=== PATIENT | male | born 1990 | race Caucasian/White ===

== ENCOUNTER 2023-12-09 09:28 | Outpatient (AMB) | payer OTHER, SELFPAY ==
--- NOTE | 2023-12-09 09:48 | A.OFFPC_ITS ---
Vital Signs 12/09/23 09:52 12/09/23 09:58 Height 5 ft 8.9 in Weight 194 lb 4 oz BMI 28.8 BP 142/82 H 126/80 Blood Pressure Location Lt brachial Lt brachial Position Sitting Sitting Respiration 16 Pulse 72 Pulse Source Pulse Oximeter Temp 97.8 F Temp Source Oral Oxygen Delivery Method Room Air Oxygen Flow Rate 97 Intake Visit Reasons: [employer] / Medications Allergies No Known Allergies Allergy (Verified 12/09/23 09:48) Tobacco use date assessed: 12/09/23 Dental Screening Dental Screen Date: 12/09/23 Did you have a dental visit in the last 12 months?: Yes Did you have a dental problem in the last 6 months where you did not have access to dental care?: No Was dental information given to patient?: Patient has dentist HPI HPI Comments History of Present Illness Details The patient is a 33 year old male with no pertinent past medical history presenting to [facility] Patient was recently speaking with his mother regarding projects he has been meaning to but hasn't gotten done. She shared with him that he was evaluated and diagnosed with ADD as a child but did not want to pursue pharmacologic treatment. He definetely thinks he likely still has this diagnosis especially since having COVID. He would be interested in trying treatment Last Td 2009. [facility] Medical History (Updated 12/09/23 @ 10:48 by Micaela Jeronimo MD) Benign tumor Family History (Updated 12/09/23 @ 09:58 by Farheen Downing CMA) Mother Asthma Father HTN (hypertension) Hypercholesteremia Paternal Grandmother Thyroid disorder Alcoholism Cardiovascular disease Maternal Grandfather Thyroid disorder Other FH: mental illness Substance use Social History (Updated 12/09/23 @ 09:51 by Farheen Downign CMA) Housing: Apartment Patient Tobacco Use Status: Former Tobacco user Years Smoked: One month e-Cigarette/Vaping Use: Currently Using Second Hand Smoke Exposure: Yes service: No Current occupational status: employed 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 1. Little interest or pleasure in doing things: not at all 2. Feeling down, depressed, or hopeless: not at all 3. Trouble falling or staying asleep, or sleeping too much: not at all 4. Feeling tired or having little energy: not at all 5. Poor appetite or overeating: several days 6. Feeling bad about yourself - or that you are a failure or have let yourself or your family down: several days 7. Trouble concentrating on things, such as reading the newspaper or watching television: not at all 8. Moving or speaking so slowly that other people could have noticed. Or the opposite - being so fidgety or restless that you have been moving around a lot more than usual: several days 9. Thoughts that you would be better off or of hurting yourself in some way: not at all Total score: 3 Depression Screening Interpretation: Positive Depression Screening Follow-up: Declines treatment Depression Screening Done: Yes 78822 - PHQ-9 Billing: Yes Source: Developed by Drs. Jaleel Hernández, Aleksandra Wesley, Isac Thomas and colleagues, with an educational sasha from [employer]. Thrive Questionnaire Date Thrive assessed: 12/09/23 I am a: Patient What is your living situation today?: I have a steady place to live Within the past 12 months, did the food you bought not last and you didn't have the money to get more?: Never true Within the past 12 months, did you worry whether your food would run out before you got money to buy more?: Never true Do you have trouble paying for medicines?: No Do you have trouble getting transportation to medical appointments?: No Do you have trouble paying your heating and electricity bill?: No Do you have trouble taking care of your child, family member or friend?: No Do you have trouble with day-to-day activities such as bathing, preparing meals, shopping, managing finances, etc.?: No Are you currently unemployed and looking for a job?: No Are you interested in more education?: No Please select the resources that you would like help with: None Currently or been in a relationship where the following occur: no concerns reported THRIVE Score: 0 AUDIT C Alcohol Use Questionnaire (AUDIT-C) 1. How often do you have a drink containing alcohol?: Never 3. How often do you have six or more drinks on one occasion?: Never Total Score: 0 YOBANI-7 AMB Questionnaire YOBANI-7 Date YOBANI - 7 assessed: 12/09/23 Feeling nervous, anxious, or on edge: 1 = Several days Not being able to stop or control worryin = Several days Worrying too much about different things: 1 = Several days Trouble relaxin = Several days Being so restless that it is hard to sit still: 0 = Not at all Becoming easily annoyed or irritable: 0 = Not at all Feeling afraid as if something awful might happen: 0 = Not at all Total YOBANI-7 score (0-4 normal; 5-9 mild; 10-14 moderate; 15-21 severe): 4 Source: Developed by Drs. Jaleel Hernández, Aleksandra Wesley, Isac Thomas and colleagues, with an educational sasha from [employer]. YOBANI-7 Assessment Billing YOBANI-7 Assessment Tool: YOBANI-7 Assessment 37480 Review of Systems Const Details: ROS CONSTITUTIONAL: Denies weight loss, fever and chills. HEENT: Denies changes in vision and hearing. RESPIRATORY: Denies SOB and cough. CV: Denies palpitations and CP GI: Denies abdominal pain, nausea, vomiting and diarrhea. : Denies dysuria and urinary frequency. MSK: Denies new myalgia and joint pain. SKIN: Denies rash and pruritus. NEUROLOGICAL: see HPI PSYCHIATRIC: see HPI Physical exam (Primary Care) Vital Signs: Last Vital Signs Temp 97.8 F 12/09/23 09:52 Pulse 72 12/09/23 09:52 Resp 16 12/09/23 09:52 BP 126/80 12/09/23 09:58 Oxygen Delivery Method Room Air 12/09/23 09:52 Oxygen Flow Rate 97 12/09/23 09:52 PHYSICAL EXAM: GENERAL: Alert and oriented x 3. NAD EYES: EOMI. Anicteric. HENT: Moist mucous membranes. No scleral icterus. No cervical lymphadenopathy. LUNGS: Clear to auscultation bilaterally. CARDIOVASCULAR: Regular rate and rhythm. No murmur. No JVD. ABDOMEN: Soft, non-tender +bs EXTREMITIES: No edema. Non-tender. SKIN: No rashes or lesions. Warm. NEUROLOGIC: No focal neurological deficits. PSYCHIATRIC: Cooperative. Appropriate mood and affect BMI result Body Mass Index 28.8 Tobacco/Smoking Status: Tobacco use Status Tobacco use date assessed 12/09/23 12/09/23 09:58 Patient Tobacco Use Status Former Tobacco user 12/09/23 09:58 e-Cigarette/Vaping Use Currently Using 12/09/23 09:58 PHQ-9: PHQ-9 Score PHQ-9: Total score 3 12/09/23 10:06 Depression Screening Interpretation: Positive Depression Screening Follow-up: Declines treatment Thrive Assessment: Date of Thrive Assessment Date Thrive assessed 12/09/23 12/09/23 09:58 Currently or been in a relationship where the following occur: no concerns reported Assessment and Plan Assessment & Plan (1) Attention deficit: Comment: Trial adderall 15mg twice daily. Can omit second dose when not needed. He will follow up in 3 weeks to assess response Code(s): R41.840 - Attention and concentration deficit (2) Screening for lipid disorders: Code(s): Z13.220 - Encounter for screening for lipoid disorders (3) Screening, deficiency anemia, iron: Code(s): Z13.0 - Encounter for screening for diseases of the blood and blood-forming organs and certain disorders involving the immune mechanism (4) Screening for metabolic disorder: Code(s): Z13.228 - Encounter for screening for other metabolic disorders Orders: Orders Complete Blood Count Auto Diff Today R41.840 - Attention and concentration deficit, Z13.0 - Encounter for screening for diseases of the blood and blood- forming organs and certain disorders involving the immune mechanism, Z13.220 - Encounter for screening for lipoid disorders, Z13.228 - Encounter for screening for other metabolic disorders Lipid Panel Today R41.840 - Attention and concentration deficit, Z13.0 - Encounter for screening for diseases of the blood and blood-forming organs and certain disorders involving the immune mechanism, Z13.220 - Encounter for screening for lipoid disorders, Z13.228 - Encounter for screening for other metabolic disorders TSH reflex Free T4 Today R41.840 - Attention and concentration deficit, Z13.0 - Encounter for screening for diseases of the blood and blood-forming organs and certain disorders involving the immune mechanism, Z13.220 - Encounter for screening for lipoid disorders, Z13.228 - Encounter for screening for other metabolic disorders Comprehensive Met. Panel Today R41.840 - Attention and concentration deficit, Z13.0 - Encounter for screening for diseases of the blood and blood-forming organs and certain disorders involving the immune mechanism, Z13.220 - Encounter for screening for lipoid disorders, Z13.228 - Encounter for screening for other metabolic disorders Medications: New dextroamphetamine-amphetamine 15 mg (Adderall) administer doses at least 4-6 hours apart; Partial Fill upon patient request. 15 mg PO BID 30 days 60 tabs 0RF Coding Level of Care Code Tele New Pt Level 4 (81251) Diagnoses Attention deficit R41.840 Screening for lipid disorders Z13.220 Screening, deficiency anemia, iron Z13.0 Screening for metabolic disorder Z13.228 Additional Codes YOBANI-7 Assessment Billing - YOBANI-7 Assessment Tool: YOBANI-7 Assessment [id number] ([id number])
[2023-12-09 09:52] VITALS: BP 142/82; PULSE 72; RESP 16; TEMP 36.6; BMI 28.8
[2023-12-09 09:58] VITALS: BP 126/80
== END 2023-12-09 10:35 | disposition home or self-care (01) ==
PROVIDERS: Visit Provider Internal Medicine
DX: R41.840 Attention and concentration deficit (principal); Z13.220 Encounter for screening for lipoid disorders; Z13.0 Encounter for screening for diseases of the blood and blood-forming organs and certain disorders involving the immune mechanism; Z13.228 Encounter for screening for other metabolic disorders
CPT/HCPCS: 99204

== ENCOUNTER 2023-12-09 10:37 | Outpatient (REF) | payer OTHER, SELFPAY ==
[2023-12-09 14:22] LABS: MANUAL DIFF FLAG NO
[2023-12-09 14:43] LABS: Basophils Absolute Auto 0.1 X10*3/uL (0.0-0.2); Basophils Percent Auto 0.9 % (0-2); Eosinophils Absolute Auto 0.1 X10*3/uL (0.0-0.4); Eosinophils Percent Auto 0.9 % (0-4); Hematocrit 46.9 % (42.0-52.0); Imm Gran Abs Auto 0.03 X10*3/uL (0.00-0.03); Imm Gran Pct Auto 0.3 % (0.0-0.4); Lymphocytes Absolute Auto 2.5 X10*3/uL (1.2-4.9); Lymphocytes Percent Auto 27.6 % (20-40); Mean Corpuscular HGB Conc 34.1 g/dl (31.0-36.0); Mean Corpuscular Hemoglobin 31.3 pg (27.0-33.0); Mean Corpuscular Volume 91.8 fL (80.0-98.0); Mean Platelet Volume 10.8 fL (9.4-12.4); Monocytes Absolute Auto 0.5 X10*3/uL (0.1-1.2); Monocytes Percent Auto 5.2 % (2-11); Neutrophils Percent Auto 65.1 % (45-73); Platelet Count 403 X10*3/uL (160-400); Red Blood Count 5.11 X10*6/uL (4.60-5.80); Red Cell Distribution Width 11.7 % (11.0-16.0); White Blood Count 9.2 X10*3/uL (4.8-10.8)
[2023-12-09 15:20] LABS: Alanine Aminotransferase 23 U/L (0-40); Alkaline Phosphatase 81 U/L (39-117); Anion Gap 16 (12-20); Aspartate Amino Transferase 19 U/L (5-37); Bilirubin Total 0.4 mg/dL (0.0-1.0); Blood Urea Nitrogen 12 mg/dL (9-16); Calcium 10.4 mg/dL (8.4-10.2); Carbon Dioxide 24 mmol/L (22-29); Chloride 105 mmol/L (96-108); Cholesterol 206 mg/dL (<200); Estimated Glomerular Filt Rate > 60; Glucose Random 92 mg/dL (60-115); HDL Cholesterol 52 mg/dL (>40); LDL Cholesterol Calculated 129 mg/dL (<100); Potassium 4.1 mmol/L (3.3-5.1); Sodium 141 mmol/L (135-145); Total Protein 8.1 g/dL (6.5-8.0); Triglycerides 128 mg/dL (<150)
== END 2023-12-09 10:38 | disposition home or self-care (01) ==
LOC: HO.WFDLDS 10:37
PROVIDERS: Visit Provider Internal Medicine
DX: Z13.220 Encounter for screening for lipoid disorders (principal); Z13.228 Encounter for screening for other metabolic disorders; Z13.0 Encounter for screening for diseases of the blood and blood-forming organs and certain disorders involving the immune mechanism; R41.840 Attention and concentration deficit
CPT/HCPCS: 36415; 80053; 80061; 84443; 85025

== ENCOUNTER → 2023-12-30 15:58 | Outpatient (AMB) | payer OTHER, SELFPAY ==
--- NOTE | 2023-12-30 16:38 | A.OFFPC_ITS ---
Intake Visit Reasons: follow up meds Allergies No Known Allergies Allergy (Verified 12/09/23 09:48) Tobacco use date assessed: 12/09/23 Dental Screening Dental Screen Date: 12/09/23 HPI HPI Comments History of Present Illness Details The patient is a 33 year old male with no pertinent past medical history presenting to [facility] BH: Patient was started on adderall 15mg twice daily at his last visit. He is doing really well on the medication. Denies palpitations, JEAN BAPTISTE, anorexia. Patient was recently speaking with his mother regarding projects he has been meaning to but hasn't gotten done. She shared with him that he was evaluated and diagnosed with ADD as a child but did not want to pursue pharmacologic treatment. He definetely thinks he likely still has this diagnosis especially since having COVID. He would be interested in trying treatment Last Td 2009. ROS see HPI [facility] Medical History (Updated 01/04/24 @ 10:00 by Micaela Jeronimo MD) Benign tumor Family History (Updated 12/09/23 @ 09:58 by Farheen Downing CMA) Mother Asthma Father HTN (hypertension) Hypercholesteremia Paternal Grandmother Thyroid disorder Alcoholism Cardiovascular disease Maternal Grandfather Thyroid disorder Other FH: mental illness Substance use Social History (Updated 12/09/23 @ 09:51 by Farheen Downing CMA) Housing: Apartment Patient Tobacco Use Status: Former Tobacco user Years Smoked: One month e-Cigarette/Vaping Use: Currently Using Second Hand Smoke Exposure: Yes service: No Current occupational status: employed 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 Jaleel Hernández, Aleksandra Wesley, Isac Thomas and colleagues, with an educational sasha from [employer]. Physical exam (Primary Care) Tobacco/Smoking Status: Tobacco use Status Tobacco use date assessed 12/09/23 12/30/23 16:39 Patient Tobacco Use Status Former Tobacco user 12/30/23 16:39 e-Cigarette/Vaping Use Currently Using 12/30/23 16:39 Thrive Assessment: Date of Thrive Assessment Date Thrive assessed 12/09/23 12/30/23 16:39 Telehealth Telehealth Telehealth Platform: Telephone Location of provider rendering services: practice address Location of patient: address on file Patient Identification confirmed using: Name, : Yes Telehealth method: voice only Patient verbally consented to treatment: Yes Patient verbally consented to billing insurance company: Yes Patient informed of any privacy concerns related to visit: Yes Minutes spent on Phone/Video with Pt.: 22 Assessment and Plan Assessment & Plan (1) Attention deficit: Comment: Doing well on adderall 15mg twice daily Code(s): R41.840 - Attention and concentration deficit Coding Level of Care Code Tele Est Pt Level 3 (58322) Diagnoses Attention deficit R41.840
== END ==
PROVIDERS: Visit Provider Internal Medicine
DX: R41.840 Attention and concentration deficit (principal)
CPT/HCPCS: 99443

== ENCOUNTER 2024-04-19 14:50 | Outpatient (AMB) | payer OTHER, SELFPAY ==
--- NOTE | 2024-04-19 14:50 | A.OFFPC_ITS ---
Vital Signs 04/19/24 14:51 Height 5 ft 8.9 in Weight 197 lb 6 oz BMI 29.2 BP 136/90 H Blood Pressure Location Lt brachial Position Sitting Pulse 95 Pulse Source Pulse Oximeter Pulse Oximetry (%) 98 Oxygen Delivery Method Room Air Intake Visit Reasons: follow up meds Allergies No Known Allergies Allergy (Verified 04/19/24 14:53) Tobacco use date assessed: 04/19/24 Dental Screening Dental Screen Date: 04/19/24 Did you have a dental visit in the last 12 months?: Yes Did you have a dental problem in the last 6 months where you did not have access to dental care?: No Was dental information given to patient?: Patient has dentist HPI HPI Comments History of Present Illness Details The patient is a 33 year old male with a past medical history of ADD presenting for follow up BH: Continues to do well on adderall 15mg twice daily. He is doing really well on the medication. Denies palpitations, JEAN BAPTISTE, anorexia. No insomnia, in fact sleeping much better since starting the medication ROS see HPI PHYSICAL EXAM: GENERAL: Alert and oriented x 3. NAD EYES: EOMI. Anicteric. HENT: Moist mucous membranes. No scleral icterus. No cervical lymphadenopathy. LUNGS: Clear to auscultation bilaterally. CARDIOVASCULAR: Regular rate and rhythm. No murmur. No JVD. ABDOMEN: Soft, non-tender +bs EXTREMITIES: No edema. Non-tender. SKIN: No rashes or lesions. Warm. NEUROLOGIC: No focal neurological deficits. CN II-XII grossly intact PSYCHIATRIC: Cooperative. Appropriate mood and affect [facility] Medical History (Updated 01/04/24 @ 10:00 by Micaela Jeronimo MD) Benign tumor Family History (Updated 12/09/23 @ 09:58 by Farheen Downing CMA) Mother Asthma Father HTN (hypertension) Hypercholesteremia Paternal Grandmother Thyroid disorder Alcoholism Cardiovascular disease Maternal Grandfather Thyroid disorder Other FH: mental illness Substance use Social History (Updated 12/09/23 @ 09:51 by Farheen Downing CMA) Housing: Apartment Patient Tobacco Use Status: Former Tobacco user Years Smoked: One month e-Cigarette/Vaping Use: Currently Using Second Hand Smoke Exposure: Yes service: No Current occupational status: employed 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 1. Little interest or pleasure in doing things: not at all 2. Feeling down, depressed, or hopeless: not at all 3. Trouble falling or staying asleep, or sleeping too much: not at all 4. Feeling tired or having little energy: not at all 5. Poor appetite or overeating: several days 6. Feeling bad about yourself - or that you are a failure or have let yourself or your family down: several days 7. Trouble concentrating on things, such as reading the newspaper or watching television: not at all 8. Moving or speaking so slowly that other people could have noticed. Or the opposite - being so fidgety or restless that you have been moving around a lot more than usual: several days 9. Thoughts that you would be better off or of hurting yourself in some way: not at all Total score: 3 Depression Screening Interpretation: Negative (neg) Depression Screening Done: Yes 57149 - PHQ-9 Billing: Yes Source: Developed by Drs. Jaleel Hernández, Aleksandra Wesley, Isac Thomas and colleagues, with an educational sasha from [employer]. Thrive Questionnaire Date Thrive assessed: 04/12/24 I am a: Patient What is your living situation today?: I have a steady place to live Within the past 12 months, did the food you bought not last and you didn't have the money to get more?: Never true Within the past 12 months, did you worry whether your food would run out before you got money to buy more?: Never true Do you have trouble paying for medicines?: No Do you have trouble getting transportation to medical appointments?: No Do you have trouble paying your heating and electricity bill?: No Do you have trouble taking care of your child, family member or friend?: No Do you have trouble with day-to-day activities such as bathing, preparing meals, shopping, managing finances, etc.?: No Are you currently unemployed and looking for a job?: No Are you interested in more education?: No Please select the resources that you would like help with: None Currently or been in a relationship where the following occur: No concerns reported THRIVE Score: 0 AUDIT C Alcohol Use Questionnaire (AUDIT-C) 1. How often do you have a drink containing alcohol?: 2-4 times a month 2. How many drinks containing alcohol do you have on a typical day when you are drinking?: 1 or 2 3. How often do you have six or more drinks on one occasion?: Never Total Score: 2 YOBANI-7 AMB Questionnaire YOBANI-7 Date YOBANI - 7 assessed: 04/19/24 Feeling nervous, anxious, or on edge: 0 = Not at all Not being able to stop or control worryin = Not at all Worrying too much about different things: 0 = Not at all Trouble relaxin = Several days Being so restless that it is hard to sit still: 1 = Several days Becoming easily annoyed or irritable: 0 = Not at all Feeling afraid as if something awful might happen: 0 = Not at all Total YOBANI-7 score (0-4 normal; 5-9 mild; 10-14 moderate; 15-21 severe): 2 Source: Developed by Drs. Jaleel Hernández, Aleksandra Wesley, Isac Thomas and colleagues, with an educational assha from [employer]. Physical exam (Primary Care) Vital Signs: Last Vital Signs Pulse 95 04/19/24 14:51 BP 136/90 H 04/19/24 14:51 Pulse Ox 98 04/19/24 14:51 Oxygen Delivery Method Room Air 04/19/24 14:51 BMI result Body Mass Index 29.2 Tobacco/Smoking Status: Tobacco use Status Tobacco use date assessed 04/19/24 04/19/24 14:55 Patient Tobacco Use Status Former Tobacco user 04/19/24 14:55 e-Cigarette/Vaping Use Currently Using 04/19/24 14:55 PHQ-9: PHQ-9 Score PHQ-9: Total score 3 04/19/24 14:55 Depression Screening Interpretation: Negative (neg) Thrive Assessment: Date of Thrive Assessment Date Thrive assessed 04/12/24 04/19/24 14:55 Currently or been in a relationship where the following occur: No concerns reported Assessment and Plan Assessment & Plan (1) Attention deficit: Comment: Doing well on adderall 15mg twice daily Code(s): R41.840 - Attention and concentration deficit Plan: Continues to do really well on adderall 15mg twice daily. He can continue the current med dose. Coding Level of Care Code Est Pt Level 3 (82780) Diagnoses Attention deficit R41.840
[2024-04-19 14:51] VITALS: BP 136/90; PULSE 95; O2SAT 98; BMI 29.2
== END 2024-04-19 15:19 | disposition home or self-care (01) ==
PROVIDERS: PCP Internal Medicine; Visit Provider Internal Medicine
DX: R41.840 Attention and concentration deficit (principal)

== ENCOUNTER → 2024-04-19 14:50 | Outpatient (BNVA) | payer OTHER, SELFPAY | PROVIDERS: PCP Internal Medicine; Visit Provider Internal Medicine ==

== ENCOUNTER 2024-12-06 10:33 | Outpatient (AMB) | payer OTHER, SELFPAY ==
--- NOTE | 2024-12-06 10:39 | MHC.PC.OV ---
Vital Signs 12/06/24 10:43 Height 5 ft 9 in Weight 219 lb 2 oz BMI 32.4 BP 126/72 Blood Pressure Location Rt brachial Position Sitting Pulse 65 Pulse Source Pulse Oximeter Temp 98.6 F Temp Source Temporal Artery Scan Pulse Oximetry (%) 98 Oxygen Delivery Method Room Air Intake Visit Reasons: cpe Intake Note: Rj presents in the office today for his annual physical. Allergies No Known Allergies Allergy (Verified 12/06/24 10:42) Tobacco use date assessed: 12/06/24 Dental Screening Dental Screen Date: 12/06/24 Did you have a dental visit in the last 12 months?: Yes Did you have a dental problem in the last 6 months where you did not have access to dental care?: No Was dental information given to patient?: Patient has dentist HPI HPI Comments History of Present Illness Details This is a 34-year-old male with a past medical history of ADHD presenting for a physical exam. ADHD is treated with 15 mg twice daily. He is doing well on it, and sometimes he only takes it in the morning. He does note more stress at work due to restructuring at [employer], so he is keeping his options open. He does not feel that anxiety or stress or overwhelming at this time or have a desire to see a therapist or discuss medication for anxiety. He reports influenza vaccine, COVID-19 vaccine and Tdap are up-to-date with the pharmacy. ROS: Constitutional: No unexplained weight loss, fever, chills, fatigue or night sweats. Eyes: No vision changes, blurry vision, double vision, eye pain, eye redness, eye discharge. ENT: No hearing loss, sneezing, congestion, runny nose or sore throat. Respiratory: No shortness of breath, cough or sputum production. Cardiovascular: No chest pain, chest pressure or chest discomfort. No palpitations or pedal edema. Gastrointestinal: No anorexia, nausea, vomiting or diarrhea. No abdominal pain or blood in stool. Genitourinary: No dysuria, hematuria, urinary frequency. Neurologic: No headache, dizziness, syncope, unilateral weakness, ataxia, numbness or tingling in the extremities. Musculoskeletal: No muscle pain, back pain, joint pain or swelling. Hematologic/Lymphatics: No bleeding or bruising. No painful lymph nodes. Skin: No rash or itching. Endocrine: No cold or heat intolerance. No polyuria or polydipsia. Psychiatric: No depression. No SI/HI. Physical exam: Constitutional: Alert, in no distress. Head: Normocephalic. Eyes: Pupils are equal, round and reactive to light. Extraocular muscles intact. Ear, Nose and Throat: Canals clear. TMs normal. Normal nasal mucosa. No nasal discharge. No oral lesions. Neck: Supple, Full range of motion. No lymphadenopathy. No palpable thyroid masses. Respiratory: Clear to auscultation. Cardiovascular: S1 S2 regular. No murmurs. Gastrointestinal: Abdomen soft, non-tender, non-distended. Normal bowel sounds. No palpable masses. Genitourinary: Lee Ann Scott present to director of media. No palpable hernia, urethral discharge, scrotal or testicular masses. Neurologic: No focal neurological deficits. Symmetric patellar reflexes. Moves all extremities spontaneously. Sensation intact bilaterally. Skin: No rashes or lesions. Musculoskeletal: No gross deformities. Normal range of motion. Extremities: Warm and well perfused. No clubbing, cyanosis or edema. Psychiatric: Normal mood and affect [facility] Medical History (Updated 12/06/24 @ 10:56 by STEPHAN Arguello) Routine physical examination Benign tumor Family History Mother Asthma Father HTN (hypertension) Hypercholesteremia Paternal Grandmother Thyroid disorder Alcoholism Cardiovascular disease Maternal Grandfather Thyroid disorder Other FH: mental illness Substance use Social History (Updated 12/06/24 @ 10:43 by Lee Ann Allen MA) Housing: Apartment Alcohol intake: current Patient Tobacco Use Status: Former Tobacco user Years Smoked: One month e-Cigarette/Vaping Use: Currently Using Second Hand Smoke Exposure: Yes Substance Use Type: Marijuana service: No Current occupational status: employed 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 1. Little interest or pleasure in doing things: not at all 2. Feeling down, depressed, or hopeless: not at all 3. Trouble falling or staying asleep, or sleeping too much: several days 4. Feeling tired or having little energy: several days 5. Poor appetite or overeating: not at all 6. Feeling bad about yourself - or that you are a failure or have let yourself or your family down: not at all 7. Trouble concentrating on things, such as reading the newspaper or watching television: not at all 8. Moving or speaking so slowly that other people could have noticed. Or the opposite - being so fidgety or restless that you have been moving around a lot more than usual: not at all 9. Thoughts that you would be better off or of hurting yourself in some way: not at all Total score: 2 Depression Screening Interpretation: Negative Depression Screening Done: Yes 91613 - PHQ-9 Billing: Yes Source: Developed by Drs. Jaleel Hernández, Aleksandra Wesley, Isac Thomas and colleagues, with an educational sasha from [employer]. Thrive Questionnaire Date Thrive assessed: 12/06/24 I am a: Patient What is your living situation today?: I have a steady place to live Within the past 12 months, did the food you bought not last and you didn't have the money to get more?: Never true Within the past 12 months, did you worry whether your food would run out before you got money to buy more?: Never true Do you have trouble paying for medicines?: No Do you have trouble getting transportation to medical appointments?: No Do you have trouble paying your heating and electricity bill?: No Do you have trouble taking care of your child, family member or friend?: No Do you have trouble with day-to-day activities such as bathing, preparing meals, shopping, managing finances, etc.?: No Are you currently unemployed and looking for a job?: No Are you interested in more education?: No Please select the resources that you would like help with: None Currently or been in a relationship where the following occur: No concerns reported THRIVE Score: 0 AUDIT C Alcohol Use Questionnaire (AUDIT-C) 1. How often do you have a drink containing alcohol?: 2-4 times a month 2. How many drinks containing alcohol do you have on a typical day when you are drinking?: 1 or 2 3. How often do you have six or more drinks on one occasion?: Less than monthly Total Score: 3 Score Reviewed/Action Taken: No YOBANI-7 AMB Questionnaire YOBANI-7 Date YOBANI - 7 assessed: 12/06/24 Feeling nervous, anxious, or on edge: 1 = Several days Not being able to stop or control worryin = Not at all Worrying too much about different things: 1 = Several days Trouble relaxin = More than half the days Being so restless that it is hard to sit still: 2 = More than half the days Becoming easily annoyed or irritable: 1 = Several days Feeling afraid as if something awful might happen: 0 = Not at all Total YOBANI-7 score (0-4 normal; 5-9 mild; 10-14 moderate; 15-21 severe): 7 Source: Developed by Drs. Jaleel Hernández, Aleksandra Wesley, Isac Thomas and colleagues, with an educational sasha from [employer]. YOBANI-7 Assessment Billing YOBANI-7 Assessment Tool: YOBANI-7 Assessment 57398 Physical exam (Primary Care) Vital Signs: Last Vital Signs Temp 98.6 F 12/06/24 10:43 Pulse 65 12/06/24 10:43 BP 126/72 12/06/24 10:43 Pulse Ox 98 12/06/24 10:43 Oxygen Delivery Method Room Air 12/06/24 10:43 BMI result Body Mass Index 32.4 Tobacco/Smoking Status: Tobacco use Status Tobacco use date assessed 12/06/24 12/06/24 10:47 Patient Tobacco Use Status Former Tobacco user 12/06/24 10:47 e-Cigarette/Vaping Use Currently Using 12/06/24 10:47 PHQ-9: PHQ-9 Score PHQ-9: Total score 2 12/06/24 10:58 Depression Screening Interpretation: Negative Thrive Assessment: Date of Thrive Assessment Date Thrive assessed 12/06/24 12/06/24 10:47 Currently or been in a relationship where the following occur: No concerns reported Coding Level of Care Code Est Pt Prev Care 18-39y(66351) Diagnoses Routine physical examination Z00.00 Additional Codes YOBANI-7 Assessment Billing - YOBANI-7 Assessment Tool: YOBANI-7 Assessment 32264 ([id number]) PHQ-9 - 55179 - PHQ-9 Billing: Yes ([id number]) Assessment & Plan Assessment & Plan (1) Routine physical examination: Code(s): Z00.00 - Encounter for general adult medical examination without abnormal findings Category: Medical Plan: Patient is seen today for a routine physical. As part of this visit we reviewed the following issues, which are considered and essential part of preventative health in this age group: - Testicular cancer screening, which includes self exam teaching - Blood pressure screening - Cholesterol screening - Nutritional and exercise counseling - Counseling of injury prevention including fire prevention, smoke alarms and seat belt usage - Screening for depression - Prevention of and/or testing for infectious diseases - Education about skin cancer - Recommendations about immunizations - Recommendation of an eye exam - Screening for substance abuse Plan Follow up in 6 months for a medication review. Orders: Orders Comprehensive Met. Panel Today Z00.00 - Encounter for general adult medical examination without abnormal findings, Z13.6 - Encounter for screening for cardiovascular disorders Lipid Panel Today E78.5 - Hyperlipidemia, unspecified, Z00.00 - Encounter for general adult medical examination without abnormal findings, Z13.6 - Encounter for screening for cardiovascular disorders CT NG by PCR Today Z00.00 - Encounter for general adult medical examination without abnormal findings, Z13.6 - Encounter for screening for cardiovascular disorders, Z20.2 - Contact with and (suspected) exposure to infections with a predominantly sexual mode of transmission Complete Blood Count no Diff Today Z00.00 - Encounter for general adult medical examination without abnormal findings, Z13.6 - Encounter for screening for cardiovascular disorders Hepatitis C Antibody Today Z00.00 - Encounter for general adult medical examination without abnormal findings, Z13.6 - Encounter for screening for cardiovascular disorders, Z20.2 - Contact with and (suspected) exposure to infections with a predominantly sexual mode of transmission HIV Ab/Ag Today Z00.00 - Encounter for general adult medical examination without abnormal findings, Z13.6 - Encounter for screening for cardiovascular disorders, Z20.2 - Contact with and (suspected) exposure to infections with a predominantly sexual mode of transmission Syphilis Screen Today Z00.00 - Encounter for general adult medical examination without abnormal findings, Z13.6 - Encounter for screening for cardiovascular disorders, Z20.2 - Contact with and (suspected) exposure to infections with a predominantly sexual mode of transmission
[2024-12-06 10:43] VITALS: BP 126/72; PULSE 65; TEMP 37; O2SAT 98; BMI 32.4
== END 2024-12-06 11:15 | disposition home or self-care (01) ==
LOC: HO.HMCFM 10:34
PROVIDERS: PCP Internal Medicine; Visit Provider Physician Assistant Medical
DX: Z00.00 Encounter for general adult medical examination without abnormal findings (principal)

== ENCOUNTER → 2024-12-06 10:33 | Outpatient (BNVA) | payer OTHER, SELFPAY | PROVIDERS: PCP Internal Medicine; Visit Provider Physician Assistant Medical | DX: Z00.00 Encounter for general adult medical examination without abnormal findings (principal); F90.9 Attention-deficit hyperactivity disorder, unspecified type; E78.5 Hyperlipidemia, unspecified; Z79.899 Other long term (current) drug therapy | CPT/HCPCS: 96127 ==

== ENCOUNTER 2025-06-13 08:47 | Outpatient (AMB) | payer OTHER, SELFPAY ==
--- NOTE | 2025-06-13 08:57 | A.OFFPC_ITS ---
Vital Signs 06/13/25 09:00 Height 5 ft 9 in Weight 206 lb 6 oz BMI 30.5 BP 146/76 H Blood Pressure Location Lt brachial Position Sitting Respiration 16 Pulse 64 Pulse Source Pulse Oximeter Temp 97.8 F Temp Source Oral Pulse Oximetry (%) 98 Oxygen Delivery Method Room Air Intake Visit Reasons: med review Intake Note: patient here for med review [employer] Required: No Allergies No Known Allergies Allergy (Verified 06/13/25 09:00) Tobacco use date assessed: 06/13/25 Dental Screening Dental Screen Date: 06/13/25 Did you have a dental visit in the last 12 months?: Yes Did you have a dental problem in the last 6 months where you did not have access to dental care?: No Was dental information given to patient?: Patient has dentist HPI HPI Comments History of Present Illness Details This is a 34-year-old male with a past medical history of ADHD presenting for follow up ADHD is treated with 15 mg twice daily. He is doing well on it, and does not need it daily. He does note more stress at work due to restructuring at [employer], so he is keeping his options open. He does not feel that anxiety or stress or overwhelming at this time or have a desire to see a therapist or discuss medication for anxiety. Flu shot today Tdap pharmacy ROS CONSTITUTIONAL: Denies weight loss, fever and chills. HEENT: Denies changes in vision and hearing. RESPIRATORY: Denies SOB and cough. CV: Denies palpitations and CP GI: Denies abdominal pain, nausea, vomiting and diarrhea. : Denies dysuria and urinary frequency. MSK: Denies new myalgia and joint pain. SKIN: Denies rash and pruritus. NEUROLOGICAL: Denies headache PSYCHIATRIC: Denies recent changes in mood. PHYSICAL EXAM: GENERAL: Alert and oriented x 3. NAD EYES: EOMI. Anicteric. HENT: Moist mucous membranes. No scleral icterus. No cervical lymphadenopathy. LUNGS: Clear to auscultation bilaterally. CARDIOVASCULAR: Regular rate and rhythm. No murmur. No JVD. ABDOMEN: Soft, non-tender +bs EXTREMITIES: No edema. Non-tender. SKIN: No rashes or lesions. Warm. NEUROLOGIC: No focal neurological deficits. CN II-XII grossly intact PSYCHIATRIC: Cooperative. Appropriate mood and affect [facility] Medical History Routine physical examination Benign tumor Family History Mother Asthma Father HTN (hypertension) Hypercholesteremia Paternal Grandmother Thyroid disorder Alcoholism Cardiovascular disease Maternal Grandfather Thyroid disorder Other FH: mental illness Substance use Social History Housing: Apartment Alcohol intake: current Patient Tobacco Use Status: Former Tobacco user Years Smoked: One month e-Cigarette/Vaping Use: Currently Using Second Hand Smoke Exposure: Yes Substance Use Type: Marijuana service: No Current occupational status: employed 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 Current occupational exposures/hazards: No Cognitive needs: No Hearing needs: No Vision needs: Yes (reading glasses) Questionnaire Thrive Questionnaire Date Thrive assessed: 12/03/24 I am a: Patient What is your living situation today?: I have a steady place to live Within the past 12 months, did the food you bought not last and you didn't have the money to get more?: Never true Within the past 12 months, did you worry whether your food would run out before you got money to buy more?: Never true Do you have trouble paying for medicines?: No Do you have trouble getting transportation to medical appointments?: No Do you have trouble paying your heating and electricity bill?: No Do you have trouble taking care of your child, family member or friend?: No Do you have trouble with day-to-day activities such as bathing, preparing meals, shopping, managing finances, etc.?: No Are you currently unemployed and looking for a job?: No Are you interested in more education?: No Please select the resources that you would like help with: None Currently or been in a relationship where the following occur: No concerns reported THRIVE Score: 0 YOBANI-7 AMB Questionnaire YOBANI-7 Date YOBANI - 7 assessed: 12/06/24 Source: Developed by Drs. Jaleel Hernández, Aleksandra Wesley, Isac Thomas and colleagues, with an educational sasha from [employer] Physical exam (Primary Care) Vital Signs: Last Vital Signs Temp 97.8 F 06/13/25 09:00 Pulse 64 06/13/25 09:00 Resp 16 06/13/25 09:00 BP 146/76 H 06/13/25 09:00 Pulse Ox 98 06/13/25 09:00 Oxygen Delivery Method Room Air 06/13/25 09:00 BMI result Body Mass Index 30.5 Tobacco/Smoking Status: Tobacco use Status Tobacco use date assessed 06/13/25 06/13/25 09:03 Patient Tobacco Use Status Former Tobacco user 06/13/25 09:03 e-Cigarette/Vaping Use Currently Using 06/13/25 09:03 Thrive Assessment: Date of Thrive Assessment Date Thrive assessed 12/03/24 06/13/25 09:03 Currently or been in a relationship where the following occur: No concerns reported Coding Level of Care Code Est Pt Level 3 (23339) Diagnoses Attention deficit R41.840 Assessment & Plan Assessment & Plan (1) Attention deficit: Comment: Doing well on adderall 15mg twice daily Code(s): R41.840 - Attention and concentration deficit Category: Medical Plan 34 year old male presenting for follow up ADD-stable on current medications Flu shot today Medications: Refilled dextroamphetamine-amphetamine 15 mg (Adderall) administer doses at least 4-6 hours apart; Partial Fill upon patient request. 15 mg PO BID 60 tabs 0RF 30 days
[2025-06-13 09:00] VITALS: BP 146/76; PULSE 64; RESP 16; TEMP 36.6; O2SAT 98; BMI 30.5
== END 2025-06-13 09:28 | disposition home or self-care (01) ==
LOC: HO.HMCFM 08:48
PROVIDERS: PCP Internal Medicine; Visit Provider Internal Medicine
DX: R41.840 Attention and concentration deficit (principal)